=== PATIENT | male | born 1965 | race African-American/Black ===

== ENCOUNTER 2017-03-01 10:11 | Inpatient (IN) | payer OTHER ==
--- NOTE | ~2017-03-01 | HP ---
Unit #: [id number] #: [id number] Patient: MITCH VALVERDE [id number] [place] [address] [id number] I MR#: [id number] NAME: MITCH VALVERDE. ROOM: P209 Age: 51 Sex: M Admission Date: 03/01/2017 : 1965 Attending Physician: Rene Franklin M.D. Admitting Physician: Rene Franklin M.D. Primary Care Physician: Rolo Montanez M.D. HISTORY AND PHYSICAL HISTORY OF PRESENT ILLNESS Mitch is a 51 year old admitted to [address] [place] [address] because of his abuse of alcohol. He also reports depression and verbalizes wanting to hurt himself. PAST MEDICAL HISTORY 1. Long history of alcohol abuse. 2. High blood pressure. PAST SURGICAL HISTORY Nothing reported. ALLERGIES No known drug allergies. SOCIAL HISTORY Smokes 1 pack per day. Drinks alcohol frequently and denies illicit drug use. FAMILY HISTORY Medically noncontributory. REVIEW OF SYSTEMS CONSTITUTIONAL: No fever or chills. HEENT: Denies any sore throat, ear pain or runny nose. CARDIOVASCULAR: Denies chest pain, irregular heart rhythm or palpitations. CHEST: Denies shortness of breath or cough. No hemoptysis. GASTROINTESTINAL: Denies nausea, vomiting, diarrhea or chronic constipation. ENDOCRINE: Denies history of increased thirst or urination. No recent significant weight loss or gain. GENITOURINARY: Denies dysuria, frequency, or hematuria. SKIN: Denies any rashes. HEMATOLOGIC: Denies history of increased bleeding or bruising. MUSCULOSKELETAL: Denies any hot, swollen joints. No generalized muscle pain. NEUROLOGIC: Denies problems with vision or speech. No frequent, severe headaches. No numbness, tingling or weakness in any extremities. Denies loss of bladder or bowel control. CURRENT MEDICATIONS 1. Detox protocol. 2. Zestril 10 mg daily. 3. Claritin 10 mg daily. Unit #: [id number] #: [id number] Patient: MITCH VALVERDE 4. Protonix 40 mg daily. PHYSICAL EXAMINATION GENERAL: Alert, well-nourished, in no apparent distress. VITAL SIGNS: Blood pressure 130/84, heart rate 92, respirations 16, temperature 98.6. WEIGHT: 148. HEIGHT: 5 feet 7 inches. SKIN: Warm and dry without rash or lesion. HEENT: Normocephalic. TMs not viewed. Oral and nasal passages clear. Conjunctivae clear. PERRLA. EOMs intact. NECK: Supple without lymphadenopathy or thyromegaly. HEART: Regular rate and rhythm without murmur. LUNGS: Clear. ABDOMEN: Soft, nontender. : Not done. EXTREMITIES: No evidence of cyanosis, clubbing or edema. Moves all without focal deficit. NEUROLOGICAL: Grossly within normal limits. Cranial Nerves: II: Visual trotter are intact. III, IV AND : Extraocular movements are intact. Pupils are equal, round and reactive to light. V: Facial sensation is grossly normal. VII: Facial movements and expression are normal. VIII: Auditory acuity grossly intact. IX, X: Uvula is midline. Phonation is normal. XI: Patient shrugs shoulders and turns head normally. XII: Tongue protrudes in the midline. Sensory and Motor Function: Sensory and motor sensation is grossly normal. Motor: moves all extremities well. Coordination: Gait is normal. Deep Tendon Reflexes: Intact. IMPRESSION Psychiatric admission. RECOMMENDATIONS PSYCHIATRIC: Per psychiatrist. MEDICAL: See no contraindications to participate in facility's activities. MEDICAL PROGNOSIS Good. MEDICAL CONDITION Stable. Dictated by... Laverne Barnes PFranciscoAFrancisco-Bautista. for Keara Knight/marino TD: 03/01/2017 23:20 JOB #: [id number] Unit #: [id number] #: [id number] Patient: MITCH VALVERDE HISTORY AND PHYSICAL Page 1 of 1 X Laverne Barnes HISTORY AND PHYSICAL
--- NOTE | ~2017-03-01 | PN ---
Unit #: [id number] #: [id number] Patient: ASHLEY VALVERDE [id number] [place] [address] [id number] I MR#: [id number] NAME: ASHLEY VALVERDE. ROOM: P209 Age: 51 Sex: M Admission Date: 03/01/2017 : 1965 Attending Physician: Rene Franklin M.D. Admitting Physician: Rene Franklin M.D. Primary Care Physician: Rolo Montanez M.D. [facility] PROGRESS NOTES LOCATION [facility], room number 209, bed 2. DATE OF PROGRESS NOTE 03/03/2017 SUBJECTIVE UPDATE This is a 51-year-old -Grenadian male here in the hospital with issues of significant depression and comorbid alcohol and substance abuse with detox. The patient reports feeling somewhat better today for the first time in both mood and detox symptoms. Vital signs seem to be improving and pulse is finally starting to stabilize. The patient reports sleep was not still not great last night but better aches pains, mild diaphoresis, mild tremors still noticeable but the patient reports they are better today. No active evidence of diarrhea or vomiting. The patient denied any active SI today. He has been tolerating compliant with medications per staff. No behavioral issues on the unit. MENTAL STATUS EXAM General appears is a limited groomed -Grenadian male who appears older than stated age, fairly cooperative, responsive with the interview process with improved eye contact today. Speech was clear and coherent with normal prosody. Mood was somewhat better with a congruent affect. Thought process and content were grossly organized and linear. No overt evidence of psychosis. No active SI or HI today. The patient denied any psychosis. The patient's memory is grossly intact. Associations were normal. Alert oriented times four. Cognitive function is at baseline. Insight and judgment is improving. RECOMMENDATIONS We will continue patient's admission for further safety and stabilization for ongoing detox and mood issues. Overall the patient is showing good progress and care and we will monitor for any changes for the next 24 hours. Will most likely plan for disposition tomorrow if progress is maintained. Dictated by... Rene Franklin M.D. SB/rll Unit #: [id number] #: [id number] Patient: ASHLEY VALVERDE Hans TD: 03/06/2017 02:50 JOB #: [id number] [facility] PROGRESS NOTES Page 1 of 1 X Rene Franklin MD PROGRESS NOTE
--- NOTE | ~2017-03-01 | PN ---
Unit #: [id number] #: [id number] Patient: ASHLEY VALVERDE [id number] [place] [address] [id number] I MR#: [id number] NAME: ASHLEY VALVERDE. ROOM: P209 Age: 51 Sex: M Admission Date: 03/01/2017 : 1965 Attending Physician: Rene Franklin M.D. Admitting Physician: Rene Franklin M.D. Primary Care Physician: Rolo Montanez M.D. [facility] PROGRESS NOTES LOCATION [facility], [address] [place] [address], room number 209, bed 2. DATE OF ADMISSION 03/01/2017 DATE OF PROGRESS NOTE 03/02/2017 SUBJECTIVE UPDATE This is a 51-year-old -Albanian male here with issues of ongoing alcohol dependency as well as depression. The patient reports symptoms continuing to be present with tremors, diaphoresis, anxiety, upset stomach, energy issues, sleep issues, headaches, aches and pains, etc. The patient reports that he did sleep fairly well last night with the medication changes but is still feeling "bad" today. No active SI now but depression remains prominent. Patient tolerating med changes well thus far. Vital signs included a blood pressure of 124/85 with a pulse of 130. CIWA score is 7 currently. MENTAL STATUS EXAM GENERAL APPEARANCE: A limitedly groomed -Albanian male who appears older than stated age, fairly cooperative, responsive with the interview process though moderate eye contact at best. Speech was clear and coherent with normal prosody. Mood was depressed with a blunted affect. Thought process and content were fairly organized and linear. No overt evidence of psychosis. The patient denied any active SI or HI at this time. The patient's memory was grossly intact. Associations were normal. Cognitive function was at baseline, alert and oriented x4. Insight and judgment are limited but improving. RECOMMENDATIONS We will continue patient's admission for further safety and stabilization for ongoing detox issues with symptoms as noted above with depression, comorbid and compounding the situation. Patient tolerating changes but still stabilization is required. We will continue to encourage compliance with that as well as groups and activities, ambulation and socialization for cathartic intervention. Dictated by... Unit #: [id number] #: [id number] Patient: ASHLEY VALVERDE M.D. SB/nidhi TD: 03/04/2017 13:23 JOB #: [id number] [facility] PROGRESS NOTES Page 1 of 1 X Rene Franklin MD PROGRESS NOTE
--- NOTE | ~2017-03-01 | DS ---
Unit #: [id number] #: [id number] Patient: ASHLEY VALVERDE [id number] [place] [address] [id number] I MR#: [id number] NAME: ASHLEY VALVERDE. ROOM: P209 Age: 51 Sex: M Admission Date: 03/01/2017 : 1965 Discharge Date: 03/04/2017 Attending Physician: Rene Franklin M.D. Primary Care Physician: Rolo Montanez M.D. DISCHARGE SUMMARY REASON FOR ADMISSION Issues with alcohol dependency with withdrawal as well as major depressive disorder with suicidal ideation. DIAGNOSTIC STUDIES LABORATORY DATA: Pertinent labs, patient had routine labs done which included CMP that showed AST and ALT slightly elevated at 53 and 56 respectively. CBC showed white blood cell count slightly low at 3.7, hemoglobin slightly low at 12.7, platelets of 114. Otherwise, remaining findings within normal parameters. Urine toxicology was positive for marijuana with urinalysis positive for 1+ protein and 1+ urobilinogen with 2-5 UHYALS but no bacteria, no nitrates. No other test performed. HOSPITAL COURSE The patient was admitted for safety and stabilization for ongoing issues with alcohol dependency and subsequent withdrawal and was placed on appropriate protocol therefore. Patient was also started on Zoloft 50 mg daily by mouth for depression with 100 mg of trazodone at night for sleep. Over the course of the hospitalization, the patient went through typical alcohol withdrawal treatment symptoms including aches and pains, tremors, poor sleep, appetite, depression, anxiety, suicidal thoughts, GI disturbance and etc. Overall, patient went through the detox process without issue and by time of discharge was showing no overt signs and was reporting his mood was better. Patient tolerated the medication changes with the Zoloft and trazodone and at time of discharge was denying any active SI. At that point, patient's plan was to follow up outpatient with community resources through the [facility]. He is to go home to his sister's by bus token with most likely following up with [facility] [place] [facility] thereafter. Overall felt patient had reached maximum benefit from inpatient admission as he was no longer having any active SI or detox symptoms and showed good progress. There was no behavioral or acting out issues on the unit and patient was very calm and appropriate at time of discharge. Patient was maintained on his home dose of Protonix, Zestril and Claritin for his related comorbid medical conditions. No changes were made in their care. DISCHARGE DIAGNOSES 1. Alcohol dependency with withdrawal. 2. Major depressive disorder, recurrent, severe without psychotic features. Unit #: [id number] #: [id number] Patient: ASHLEY VALVERDE 3. Hypertension. 4. Gastroesophageal reflux disease. 5. Seasonal allergies. FOLLOWUP CARE Discharged to his sister's house by way of bus token. DISCHARGE MEDICATIONS 1. Protonix 40 mg daily by mouth for GERD. 2. Zestril 10 mg daily by mouth for hypertension. 3. Claritin 10 mg daily by mouth for seasonal allergies. CONDITION AT DISCHARGE Improved. PROGNOSIS Guarded given patient's failure for followup care and compliance. DIET AND ACTIVITY Diet is heart healthy with activity as tolerated. Dictated by... Rene Franklin M.D. RANDALL/marino TD: 03/04/2017 13:19 JOB #: [id number] DISCHARGE SUMMARY Page 1 of 1 X Rene Franklin MD X DISCHARGE SUMMARY
--- NOTE | ~2017-03-01 | A ---
[facility] DATE: 03/04/17 Patient: ASHLEY VALVERDE Physician: BIANCAJacklyn Address: [address] Room/Bed: [address], Zip: [place] [address] Admit Date: 03/01/17 Date of : [birth year] Height: 5 7 Weight: [id number] NUTRITIONAL ASSESSMENT: REASON: NUTRITION RISK POINT- UNINTENTIONAL WEIGHT LOSS PATIENT ADMITTED OR SI AND ETOH ABUSE PMH: HTN, LONG HX ETOH ABUSE Anthropometrics: 5'7", WT: 148#, BMI: 23.2, %IBW: 100 Labs: 03/02/17- NUTRITIONAL LABS WNL Meds: ZESTRIL, VIT D, DESYREL, VISTARIL, DETOX PROTOCOL, MVI Assessment: PATIENT IS A 51 Y/O MALE ADMITTED FOR SI AND ETOH ABUSE. PATIENT IS CURRENTLY UNEMPLOYED, HOMELESS, SMOKES 1 PPD, HAS DAILY ETOH USE, AND DENIES ILLICIT SUBSTANCE ABUES. PATIENT'S TOX SCREEN WAS POSITIVE FOR MARIJUANA. PATIENT HAS BEEN NON-COMPLIANT WITH MEDS PRIOR TO ADMIT, AND HE HAS A HX OF INPATIENT PSYCH TREAMENT. PATIENT STATED A FAIR APPETITE WITH AN UNKNOWN AMOUNT OF WEIGHT LOSS, AND HE HAS NOT BEEN SLEEPING. NURSING REPORTS GOOD PO INTAKES. THERE ARE NO SKIN OR GI ISSUES NOTED ATT. PATIENT IS ON A REGULAR DIET. HIS BMI IS WITHIN A HEALTHY RANGE AND HE IS 100% OF HIS IBW Dx: NO NUTRITION DX Intervention: REGULAR DIET, MEDS PER MD, DETOX, PSYCH Monitoring, Evaluation and Goals: 1. ADEQUATE PO INTAKES >50% OF MEALS 2. PREVENT, CORRECT MICRO/MACRO NUTRIENT DEFICIENCIES 3. WEIGHT; MAINTAIN CURRENT WEIGHT MONITOR: WEIGHTS, LABS, PO/FLUID INTAKES Recommendations: 1. CONTINUE REGULAR DIET TOLERATED. OFFER SNACKS BETWEEN MEALS 2. ENCOURAGE ADEQUATE PO AND FLUID INTAKES RD TO F/U PER PROTOCOL AND PRN R/T PATIENT NOT AT NUTRITIONAL RISK ATT [facility] DATE: 03/04/17 Patient: ASHLEY VALVERDE Physician: ANNE Address: [address] Room/Bed: [address], Zip: [place] [address] Admit Date: 03/01/17 Date of : [birth year] Height: 5 7 Weight: [phone] Respectfully, CAPO RIVAS RD, LD [facility] cc: client file
--- NOTE | ~2017-03-01 | PA ---
Unit #: [id number] #: [id number] Patient: ASHLEY VALVERDE [id number] [facility] [address] [place] [address] [id number] I MR#: [id number] NAME: ASHLEY VALVERDE. ROOM: P209 Age: 51 Sex: M Admission Date: 03/01/2017 : 1965 Date of Assessment: 03/01/2017 Attending Physician: Rene Franklin M.D. Admitting Physician: Rene Franklin M.D. Primary Care Physician: Rolo Montanez M.D. PSYCHIATRIC ASSESSMENT DATE OF SERVICE 03/01/2017. LOCATION [facility], [address] [place] [address], room #209, bed #2. INFORMANT The patient and chart, fairly reliable. CHIEF COMPLAINT "I've been drinking and a lot of bad stuff has been going on." HISTORY OF PRESENT ILLNESS This is a 51-year-old male with reported history of longstanding major depression as well as alcohol dependency. The patient reported initially to [facility] with complaints of wanting to kill himself, thoughts about overdosing on his meds. Apparently, in their emergency room, the patient was very irritable, labile, belligerent even, repeatedly stating he was going to kill himself citing "various crap in my life," but using more expletive language. Apparently, the patient has been drinking a pint plus 6 pack of beer a day. This has been going on for the last several months, if not longer. He denied any other drug use at this point. The patient not interviewed now, but he has been transferred here to [facility], he is much more calm and subdued. He reports he is still having very profound depressive symptoms. He was noted to have tremors in both hands. He has been through the alcohol detox in the past, but he could not tell me when or the severity other than denied having seizure or being here previously. Overall, he is still vague at this point about suicidal ideation, but is very depressed. He complains of issues with poor sleep, hopelessness, irritability and continues to cite things at home between him and his girlfriend as being central to this issue right at the moment. The patient overall was open to care plan at this point and is realistic about the option that he will most likely be homeless and living in a homeless assisted before the point of discharge. He has not been in treatment recently for his depression, even though he has in the distant past, but he is open to care at this moment. PAST PSYCHIATRIC HISTORY The patient reports a distant history of psychiatric treatment for depression with at least 2 previous suicide attempts back in the 90s. He did not go into details over these or the issues that they happened other than that referred to family problems. The patient's children apparently Unit #: [id number] #: [id number] Patient: ASHLEY VALVERDE frequently fought with him to stop drinking. No history of HI, but he did report recent issues with auditory hallucinations, telling him to kill himself or others, but he did not have a specific target in that regard for HI. He denies any history of any psychosis in and of itself, but he has had issues "with withdrawal from alcohol." FAMILY HISTORY Significant for his mother attempting suicide and multiple family members with chemical dependency issues. Noncontributory. SOCIAL HISTORY The patient is single. He has 4 children. Issues with girlfriend, unemployed currently. Education level, unknown. MEDICAL HISTORY The patient reports issues with high blood pressure, GERD, seasonal allergies, vitamin D deficiency. Beyond that, nothing has noted to specifically from him. HOME MEDICATIONS Include Protonix 40 mg daily, Zestril 10 mg daily, Claritin 10 mg daily, vitamin D 5000 international units daily. ALLERGIES Include no known drug allergies. SUBSTANCE ABUSE HISTORY As noted above, unclear about previous treatment programs, but nothing official, nothing in the hospitals anyway. History of severe withdrawal according to the patient, it is unclear that is. He denies any other substances beyond alcohol. MENTAL STATUS EXAMINATION General appearance; this is a moderately groomed male who appears older than stated age. Fairly cooperative, responsive to the interview process with limited eye contact. Speech was clear and coherent with normal prosody and brief. Mood was depressed with a blunted affect. Thought process and content are grossly organized and linear. No overt evidence of psychosis. Vague SI at this time. No clear plan as he did in the emergency room at the [facility]. No hallucinations at this time. The patient's memory was grossly intact. Associations are normal. Cognitive function is at baseline. Alert and oriented x4. Insight and judgment are poor. ASSETS AND LIABILITIES Assets include some support with his children. Liabilities include recently made homeless, unemployed, poor support. No previous true exposure to inpatient treatment prior to now, noncompliant with depression management. ADMITTING DIAGNOSES 1. Alcohol dependency with withdrawal. 2. Major depressive disorder, recurrent, severe, without psychotic features. 3. Hypertension. 4. Gastroesophageal reflux disease. 5. Seasonal allergies. Unit #: [id number] #: [id number] Patient: ASHLEY VALVERDE PSYCHIATRIC PLAN Continue patient's admission for safety, stabilization for ongoing issues with both alcohol dependency as well as depression with suicidal ideations. The patient has been placed on alcohol withdrawal protocol appropriately. We will monitor for effects therefore. He has also been started on Zoloft 50 mg daily by mouth for depression and anxiety and 100 mg of trazodone at night for sleep and any residual mood issues it can be effective for. The patient was encouraged to be compliant with groups and activities and will be monitored in a safe and effective milieu. Treatment goals will be resolution of both detox issues and mood problems under controlled and monitored environment. Discharge planning was likely to include community resources and likely homeless assisted given the patient's poor support network. Estimated length stay approximately 4 to 5 days depending on the patient's progress and response to treatment. Dictated by... Rene Franklin M.D. RANDALL/jose TD: 03/02/2017 06:59 JOB #: [id number] PSYCHIATRIC ASSESSMENT Page 1 of 1 X Rene Franklin MD X PSYCHIATRIC ASSESSMENT
[2017-03-02 11:19] LABS: BASOPHIL% 1.3 % (0-2.5); EOSINOPHIL# 0.2 X10e3 (0-0.7); EOSINOPHIL% 5.9 % (0.0-7.0); HEMOGLOBIN 12.7 gm/dL (13.0-16.0); LYMPHOCYTE# 1.1 X10e3 (1.0-3.5); LYMPHOCYTE% 30.7 % (17.0-45.0); MEAN CELL VOLUME 88.3 FL (83-96); MEAN CORPUSCULAR HEMOGLOBIN 28.7 PG (28-34); MEAN CORPUSCULAR HGB CONC 32.5 g/dL (30-36); MEAN PLATELET VOLUME 8.9 FL (6.5-11.5); MONOCYTE# 0.6 X10e3 (0-1.0); MONOCYTE% 15.4 % (3.0-12.0); NEUTROPHIL# 1.7 X10e3 (1.5-7.1); NEUTROPHIL% 46.7 % (40-75); PLATELET COUNT 114 X10e3 (140-420); RED BLOOD COUNT 4.41 X10e (3.90-5.60); RED CELL DISTRIBUTION WIDTH 16.4 % (11.0-15.5); WHITE BLOOD COUNT 3.7 X10e3 (4.0-10.5)
[2017-03-02 11:22] LABS: DIFF IND NO
[2017-03-02 11:32] LABS: URINE APPEARANCE CLEAR; URINE BILIRUBIN NEG (NEG); URINE BLOOD NEG (NEG); URINE COLOR YELLOW; URINE GLUCOSE NEG (NEG); URINE KETONE NEG (NEG); URINE LEUKOCYTE ESTERASE NEG (NEG); URINE NITRATE NEG (NEG); URINE PH 8.5 (5-8); URINE PROTEIN 1+ (NEG); URINE SPECIFIC GRAVITY 1.023 (1.003-1.035)
[2017-03-02 11:35] LABS: URBCS1 AUWI 0-2 /[HPF] (0-2); URINE BACTERIA AUWI NEG (NEGATIVE); URINE SQUAMOUS EPITHELIAL CELL NONE SEEN /[HPF]; UWBCS1 AUWI 0-2 (0-5)
[2017-03-02 11:38] LABS: ALBUMIN SERUM 3.7 g/dL (3.5-5.0); CALCIUM SERUM 9.2 mg/dL (8.4-10.2); CREATININE SERUM 0.7 mg/dL (0.6-1.4); GLOM FILT RATE Estimated 124.9 mL/min (>60); POTASSIUM 3.9 mmol/L (3.5-5.1); PROTEIN TOTAL SERUM 6.9 g/dL (6.0-8.3)
[2017-03-02 12:42] LABS: AMPHETAMINE NEG (NEG); BARBITURATES NEG (NEG); BENZODIAZEPINES NEG (NEG); COCAINE NEG (NEG); MARIJUANA POS (NEG); OPIATES NEG (NEG); TRICYCLIC ANTIDEPRESSANTS NEG (NEG); U METHADONE NEG (NEG)
== END 2017-03-04 15:09 | disposition home or self-care (01) | DRG 897 ==
LOC: P2S 10:11
PROVIDERS: Psychiatry & Neurology Psychiatry
PROC: HZ2ZZZZ Detoxification Services for Substance Abuse Treatment (ICD-10-PCS; principal; 2017-03-01)
DX: F10.239 Alcohol dependence with withdrawal, unspecified (principal); F33.2 Major depressive disorder, recurrent severe without psychotic features; R45.851 Suicidal ideations; I10 Essential (primary) hypertension; K21.9 Gastro-esophageal reflux disease without esophagitis; F41.9 Anxiety disorder, unspecified
CPT/HCPCS: 80053; 80307; 81003; 85025; 86592